=== PATIENT | female | born 2000 | race Two or more races ===

== ENCOUNTER 2019-05-13 12:16 | Emergency (ER) | payer OTHER ==
[~2019-05-13] VITALS: Ht 172.7 cm; Wt 63.5 kg
[2019-05-13 12:24] VITALS: BP 102/73
[2019-05-13] MEDS ORDERED: IBUPROFEN 600 MG TAB PO ONE (13:50)
--- NOTE | 2019-05-13 13:50 | NUR ---
19/F TO ED C/O THROAT PAIN X 4 DAYS. PAIN WORSE WHEN SWALLOWING. CLEAR SPEECH. IN FAST TRACK FOR MSE.
[2019-05-13 14:15] VITALS: BP 102/73
--- NOTE | 2019-05-13 14:15 | NUR ---
Patient discharged with v/s stable. Written and verbal after care instructions given and explained. Patient alert, oriented and verbalized understanding of instructions. Ambulatory with steady gait. All questions addressed prior to discharge. ID band removed. Patient advised to follow up with PMD. Rx of PENICILLIN K, MOTRIN, PREDNSONE given. Patient educated on indication of medication including possible reaction and side effects. Opportunity to ask questions provided and answered.
== END 2019-05-13 14:18 | disposition home or self-care (01) ==
LOC: MED 12:16
DX: J02.8 Acute pharyngitis due to other specified organisms (principal); B96.89 Other specified bacterial agents as the cause of diseases classified elsewhere
CPT/HCPCS: 87081; 99283